=== PATIENT | male | born 1935 | race Caucasian/White ===

== ENCOUNTER → 2018-04-13 | Outpatient (CLI) | payer MEDICARE, OTHER ==
[~2018-04-13] MED LIST: BENADRYL25 M2 PO; EUCERIN1 CRE TP; FERROUS SULFATE65 MG PO; GINGER500 MG PO; PEPCID 20MG TAB20 MG PO; PREDNISONE20 MG PO; TOBRADEX EYE O3.5 GM OP; [UNRECOGNIZED DRUG - OTHER]
== END ==
LOC: COL.RAD 14:44
DX: N28.1 Cyst of kidney, acquired (principal); N26.1 Atrophy of kidney (terminal); N40.0 Benign prostatic hyperplasia without lower urinary tract symptoms; R39.198 Other difficulties with micturition

== ENCOUNTER → 2019-05-23 | Outpatient (CLI) | payer MEDICARE, OTHER | LOC: MHCPAIN 13:00 | DX: G89.29 Other chronic pain (principal); M47.817 Spondylosis without myelopathy or radiculopathy, lumbosacral region; M53.3 Sacrococcygeal disorders, not elsewhere classified; M96.1 Postlaminectomy syndrome, not elsewhere classified | CPT/HCPCS: G0463 ==

== ENCOUNTER → 2019-06-01 | Outpatient (CLI) | payer MEDICARE, OTHER | LOC: MHCPAIN 12:33 | DX: M47.817 Spondylosis without myelopathy or radiculopathy, lumbosacral region (principal); M54.16 Radiculopathy, lumbar region | CPT/HCPCS: J1040; Q9967 ==

== ENCOUNTER → 2019-06-28 | Outpatient (CLI) | payer MEDICARE, OTHER | LOC: MHCPAIN 13:01 | DX: G89.29 Other chronic pain (principal); M47.817 Spondylosis without myelopathy or radiculopathy, lumbosacral region; M54.16 Radiculopathy, lumbar region; M53.3 Sacrococcygeal disorders, not elsewhere classified; M96.1 Postlaminectomy syndrome, not elsewhere classified | CPT/HCPCS: G0463 ==

== ENCOUNTER → 2019-08-22 | Outpatient (CLI) | payer MEDICARE, OTHER | LOC: MHCPAIN 12:53 | DX: M47.817 Spondylosis without myelopathy or radiculopathy, lumbosacral region (principal); M54.16 Radiculopathy, lumbar region | CPT/HCPCS: G0463 ==

== ENCOUNTER 2019-11-13 13:28 | Emergency (ER) | payer MEDICARE, OTHER ==
[~2019-11-13] VITALS: Ht 175.3 cm; Wt 59.1 kg
[2019-11-13 13:44] VITALS: TEMP 99.6
[2019-11-13 14:41] LABS: BASO % 0.9 % (0.0-2.0); EOS % 0.6 % (0-4.0); GRAN # 2.1 (1.4-6.5); GRAN % 65.2 % (42.2-75.2); HEMOGLOBIN 10.5 g/dl (13.5-18.0); LYMPH # 0.5 (1.2-3.4); MEAN CELL VOLUME 92 fl (80.0-100.0); MEAN CORPUSCULAR HEMOGLOBIN 30 pg (27.0-31.0); MEAN CORPUSCULAR HGB CONC 32 g/dl (33.0-37.0); MEAN PLATELET VOLUME 10.4 fl (7.4-10.4); MONO # 0.6 (0.1-0.6); MONO % 18.3 % (1.7-9.3); PLATELET COUNT 221 K/mm3 (130-400); RED BLOOD COUNT 3.56 M/mm3 (4.20-5.60); REDCELL DISTRIBUTION WIDTH-CV 12.7 % (11.5-14.5)
[2019-11-13 14:42] LABS: HEMATOCRIT 32.8 % (42.0-52.0)
[2019-11-13 14:49] LABS: ALANINE AMINOTRANSFERASE 12 U/L (4-49); ALBUMIN 3.5 gm/dL (3.5-5.0); ALKALINE PHOSPHATASE 76 U/L (50-136); ANION GAP 9 mmol/L (7-16); AST,SGOT 28 U/L (15-37); BILIRUBIN,TOTAL 0.3 mg/dL (0.0-1.0); BLOOD UREA NITROGEN 24 mg/dL (9-20); CALCIUM 8.6 mg/dL (8.4-10.2); CARBON DIOXIDE 27 mmol/L (22-30); CHLORIDE 103 mmol/L (98-107); CREATININE, serum 1.47 (0.66-1.25); GLUCOSE 89 mg/dL (74-106); POTASSIUM 4.6 mmol/L (3.4-5.0); SODIUM 140 mmol/L (137-145); TOTAL PROTEIN 6.1 gm/dL (6.4-8.2)
[2019-11-13 15:07] LABS: TROPONIN-I < 0.012 ng/mL (0.000-0.035)
[2019-11-13 16:05] LABS: COLLECTION METHOD CLEAN CATCH
[2019-11-13 16:39] LABS: PH 5 (5-8); SQUAMOUS EPITHELIAL None Seen /hpf; URINE APPEARANCE Clear; URINE BACTERIA None Seen /hpf; URINE BILIRUBIN Negative (NEGATIVE); URINE BLOOD Negative (NEGATIVE); URINE COLOR Yellow; URINE GLUCOSE Negative (NEGATIVE); URINE KETONE Negative (NEGATIVE); URINE LEUKOCYTE ESTERASE Negative (NEGATIVE); URINE NITRATE Negative (NEGATIVE); URINE PROTEIN(semi-quant) Negative (NEGATIVE); URINE RBC 0-2 /hpf; URINE UROBILINOGEN Negative (NEGATIVE)
[2019-11-13 17:06] VITALS: BP 136/65; PULSE 72
== END 2019-11-13 17:06 | disposition home or self-care (01) ==
LOC: COL.ER 13:28
PROVIDERS: Emergency Medicine
DX: R07.89 Other chest pain (principal); R09.81 Nasal congestion

== ENCOUNTER 2019-11-15 13:00 | Outpatient (RCR) | payer MEDICARE, OTHER | END 2020-01-15 | disposition home or self-care (01) | LOC: WSPT | DX: M41.9 Scoliosis, unspecified (principal); G57.00 Lesion of sciatic nerve, unspecified lower limb ==

== ENCOUNTER 2020-03-09 07:54 | Emergency (ER) | payer MEDICARE, OTHER ==
[~2020-03-09] VITALS: Ht 172.7 cm; Wt 56.8 kg
[2020-03-09 08:08] VITALS: TEMP 98.4
[2020-03-09 09:33] VITALS: BP 147/79; PULSE 97
== END 2020-03-09 09:34 | disposition home or self-care (01) ==
LOC: COL.ER 07:54
DX: H57.89 Other specified disorders of eye and adnexa (principal)

== ENCOUNTER → 2021-06-13 | Outpatient (CLI) | payer MEDICARE, OTHER | LOC: COL.RAD 06-11 09:05 | DX: M47.816 Spondylosis without myelopathy or radiculopathy, lumbar region (principal); M41.86 Other forms of scoliosis, lumbar region; M25.551 Pain in right hip ==

== ENCOUNTER 2021-09-04 10:30 | Outpatient (RCR) | payer MEDICARE, OTHER | END 2021-09-05 | disposition home or self-care (01) | LOC: WSPT | DX: M54.50 Low back pain, unspecified (principal); M25.551 Pain in right hip ==

== ENCOUNTER → 2022-02-11 | Outpatient (CLI) | payer MEDICARE, OTHER | LOC: COL.RAD 07:07 | DX: G31.84 Mild cognitive impairment of uncertain or unknown etiology (principal); R25.9 Unspecified abnormal involuntary movements; R90.82 White matter disease, unspecified ==

== ENCOUNTER → 2023-09-07 | Outpatient (REF) | payer MEDICARE, OTHER ==
[~2023-09-07] MED LIST changes: +ARICEPT 5MG PO; +ASPIRIN 81M81 MG/TA2 PO; +FLEXERIL5 MG PO; +MELATIN 3 MG-11 TAB PO; +MIRALAX PA17 GM/Dose PO; +NEURONTIN300 MG/CAP PO; +RT ALBUTER2.5 MG/0.5 IH; +TYLENOL 325MG325 MG PO; +ULTRAM 50MG TAB50 MG PO
[2023-09-07 17:38] LABS: ALANINE AMINOTRANSFERASE < 6 U/L (0-55); ALBUMIN 3.4 gm/dL (3.4-4.8); ALKALINE PHOSPHATASE 89 U/L (40-150); ANION GAP 12 mmol/L (7-16); AST,SGOT 13 U/L (5-34); BASO # 0.1 K/mm3 (0.0-0.2); BASO % 1.3 % (0.0-2.0); BILIRUBIN,TOTAL 0.4 mg/dL (0.2-1.2); BLOOD UREA NITROGEN 34 mg/dL (8-26); CARBON DIOXIDE 22 mmol/L (23-31); CHLORIDE 105 mmol/L (98-107); CREATININE, serum 1.68 mg/dL (0.72-1.25); EOS # 0.1 K/mm3 (0.0-0.7); EOS % 2.2 % (0.0-4.0); GLUCOSE 141 mg/dL (70-99); GRAN # 3.8 K/mm3 (1.4-6.5); GRAN % 69.7 % (42.2-75.2); HEMATOCRIT 32.2 % (42.0-52.0); HEMOGLOBIN 10.4 g/dl (13.5-18.0); LYMPH % 18.1 % (20.0-51.0); MEAN CELL VOLUME 94 fl (80.0-100.0); MEAN CORPUSCULAR HEMOGLOBIN 30 pg (27-31); MEAN CORPUSCULAR HGB CONC 32 g/dl (33.0-37.0); MONO # 0.5 K/mm3 (0.1-0.6); MONO % 8.3 % (1.7-9.3); PLATELET COUNT 335 K/mm3 (130-400); POTASSIUM 4.7 mmol/L (3.5-4.5); RED BLOOD COUNT 3.44 M/mm3 (4.20-5.60); REDCELL DISTRIBUTION WIDTH-CV 13.6 % (11.5-14.5); SODIUM 139 mmol/L (136-145); TOTAL PROTEIN 5.8 gm/dL (6.2-8.1); TSH w REFLEX 4.012 uIU/mL (0.350-4.940)
== END ==
LOC: ZCOL.LAB 16:49
PROVIDERS: Internal Medicine Nephrology
DX: D64.9 Anemia, unspecified (principal); N18.32 Chronic kidney disease, stage 3b; E03.9 Hypothyroidism, unspecified

== ENCOUNTER → 2023-11-08 | Outpatient (REF) | payer MEDICARE, OTHER ==
[~2023-11-08] MED LIST changes: +ASPI325T6 PO; +CALCIUM 600600 MG PO; +DULCOLAX S10 MG/SUPP RC; +DUO-KAPS1 CAP PO; +FERROUS SU325 MG/TAB PO; +HCTZ12.5TAB PO; +IMODIUM 2MG CAPS2 MG PO; +MILK OF MA400 MG/52 PO; +MYLANTA 150 ML150 M1 PO; +NAMENDA5 MG PO; +NORCO 325 MG-51 TAB PO; +REQUIP0.25 MG PO; +SALONPAS1 EACH TP; +SINEMET 25/101 UDTAB PO; +TYLENOL SU650 MG/SUP RC; +VITAMIN C500 MG PO
[2023-11-08 13:47] LABS: BASO # 0.1 K/mm3 (0.0-0.2); BASO % 0.7 % (0.0-2.0); EOS # 0.2 K/mm3 (0.0-0.7); EOS % 1.9 % (0.0-4.0); GRAN % 82.4 % (42.2-75.2); LYMPH # 0.7 K/mm3 (1.2-3.4); LYMPH % 7.9 % (20.0-51.0); MEAN CELL VOLUME 93 fl (80.0-100.0); MEAN CORPUSCULAR HGB CONC 32 g/dl (33.0-37.0); MEAN PLATELET VOLUME 9.9 fl (7.4-10.4); MONO # 0.6 K/mm3 (0.1-0.6); MONO % 6.6 % (1.7-9.3); PLATELET COUNT 747 K/mm3 (130-400); RED BLOOD COUNT 2.78 M/mm3 (4.20-5.60); REDCELL DISTRIBUTION WIDTH-CV 14.4 % (11.5-14.5)
[2023-11-08 13:53] LABS: HEMATOCRIT 25.9 % (42.0-52.0); HEMOGLOBIN 8.2 g/dl (13.5-18.0); MEAN CORPUSCULAR HEMOGLOBIN 29 pg (27-31)
[2023-11-08 14:17] LABS: CALCIUM 8.9 mg/dL (8.4-10.2); CREATININE, serum 1.75 mg/dL (0.72-1.25); POTASSIUM 5.3 mmol/L (3.5-4.5)
== END ==
LOC: ZCOL.LAB 12:49
PROVIDERS: Internal Medicine
DX: E87.5 Hyperkalemia (principal)

== ENCOUNTER → 2024-01-20 | Outpatient (REF) | payer MEDICARE, OTHER ==
[~2024-01-20] MED LIST changes: +AQUAPHOR OINTM396 GM TP; +ARICEPT10 MG PO; +CEPHALEXIN500 M1 PO; +CERAVE 360 ML360 ML TP; +COLACE 100100 MG/CAP PO; +DULCOLAX STOOL100 MG PO; +FENTANYL 12MCG TD; +FLONASE NASAL S16 GM NS; +LEADER CLE17 GM/Dose PO; +MIRTAZAPINE7.5 MG PO; +NORVASC 5MG5 MG/TAB PO; +SINEMET 10/101 UDTAB PO; +VANCOCIN H125 MG/CAP PO; +VANTIN100 MG
[2024-04-10 13:49] LABS: CLOSTRIDIUM DIFF A/B NEG
== END ==
LOC: ZCOL.LAB 08:39
PROVIDERS: Internal Medicine
DX: R19.7 Diarrhea, unspecified (principal); R50.9 Fever, unspecified

== ENCOUNTER 2024-02-24 10:56 | Day surgery (SDC) | payer MEDICARE, OTHER ==
[~2024-02-24] VITALS: Ht 175.3 cm; Wt 57.3 kg
[~2024-02-24 10:56] MED LIST changes: -DULCOLAX STOOL100 MG PO; +LR 1,000 ML IV SCH
[2024-02-24 12:19] VITALS: BP 116/52; PULSE 72; TEMP 97.4
[2024-02-24] MEDS ORDERED: HYDROmorphone 1 MG/1 ML SYRINGE [PACU/SDC ONLY] IV PRN (12:45)
[2024-02-24] MEDS ORDERED: Morphine 2 MG/1 ML VIAL [PACU/SDC ONLY] IV PRN (12:45)
[2024-02-24] MEDS ORDERED: fentaNYL 50 MCG/ML 1 ML SYRINGE/VIAL [PACU/SDC ONLY] IV PRN (12:45)
[2024-02-24] MEDS ORDERED: Ondansetron 4 MG/2 ML VIAL IV PRN (12:45)
[2024-02-24] MEDS ORDERED: hydrALAZINE 20 MG/ML 1 ML VIAL IV PRN (12:45)
[2024-02-24] MEDS ORDERED: MIRALAX PA17 GM/Dose PO (12:57)
[2024-02-24] MEDS ORDERED: DULCOLAX STOOL100 MG PO (12:57)
[2024-02-24] MEDS ORDERED: Lidocaine 2% (20 MG/ML) 20 ML UROJET UR ONE (13:10)
[2024-02-24 14:05] VITALS: BP 149/57; PULSE 78; TEMP 97.1
[2024-02-24 14:15] VITALS: BP 141/60; PULSE 75
--- NOTE | 2024-02-24 15:27 | NUR ---
1405- PATIENT TO BAY 2 FROM PACU BY CART. REPORT GIVEN FROM COSME ELLIS. VSS. CAREGIVER AT BEDSIDE. 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 PATIENT IS TRACKING MOVEMENT WITH EYES BUT NO VERBAL COMMANDS. NO OTHER NEEDS AT THIS TIME. CALL LIGHT WITHIN REACH. 1415- VSS. PATIENT SITTING UP AND EATING. PATIENT KEEPS SAYING "I'M COLD". HAS SEVERAL BLANKETS ON. NO OTHER NEEDS AT THIS TIME. 1445- IV DC'D AT THIS TIME. TIP INTACT. 1500- DISCHARGE INSTRUCTIONS GIVEN TO CAREGIVER. VERBALIZED UNDERSTANDING. QUESTIONS ANSWERED. 1515- PATIENT TAKEN BY PERSONAL WHEELCHAIR. SENT IN [employer] DRIVEN BY [facility].
[2024-02-24 16:22] VITALS: BP 149/57; PULSE 77; TEMP 97.8
== END 2024-02-24 15:15 ==
LOC: SDCO 10:56
DX: N20.1 Calculus of ureter (principal); N39.0 Urinary tract infection, site not specified; Z85.46 Personal history of malignant neoplasm of prostate
CPT/HCPCS: C1769; C2617; J7120

== ENCOUNTER → 2024-05-17 | Outpatient (REF) | payer MEDICARE, OTHER ==
[~2024-05-17] MED LIST changes: +DULCOLAX STOOL100 MG PO; -LR 1,000 ML IV SCH
[2024-05-17 12:18] LABS: HEMOGLOBIN 11.5 g/dl (13.5-18.0); MEAN CELL VOLUME 89 fl (80.0-100.0); MEAN CORPUSCULAR HEMOGLOBIN 30 pg (27-31); MEAN CORPUSCULAR HGB CONC 33 g/dl (33.0-37.0); MEAN PLATELET VOLUME 10.2 fl (7.4-10.4); PLATELET COUNT 552 K/mm3 (130-400); RED BLOOD COUNT 3.87 M/mm3 (4.20-5.60); REDCELL DISTRIBUTION WIDTH-CV 17.8 % (11.5-14.5)
[2024-05-17 12:25] LABS: PH 5.5 (5.0-8.5); URINE APPEARANCE CLEAR (CLEAR/HAZY); URINE BLOOD NEGATIVE (NEGATIVE); URINE COLOR YELLOW (YELLOW); URINE GLUCOSE NEGATIVE (NEGATIVE); URINE KETONE TRACE (NEGATIVE); URINE NITRATE NEGATIVE (NEGATIVE); URINE PROTEIN(semi-quant) 1+ (NEGATIVE); URINE UROBILINOGEN 0.2 E.U/dL (0.2-1.0)
[2024-05-17 12:26] LABS: HEMATOCRIT 34.6 % (42.0-52.0)
[2024-05-17 12:33] LABS: ALBUMIN 2.1 g/dL (3.4-4.8); ALKALINE PHOSPHATASE 103 U/L (40-150); ANION GAP 14 mmol/L (7-16); AST,SGOT 4 U/L (5-34); BAND 24 % (0-10); BILIRUBIN,TOTAL 0.3 mg/dL (0.2-1.2); BLOOD UREA NITROGEN 82 mg/dL (8-26); CALCIUM 8.2 mg/dL (8.4-10.2); CHLORIDE 114 mEq/L (98-107); CREATININE, serum 3.28 mg/dL (0.72-1.25); GLUCOSE 163 mg/dL (70-99); LYMPHOCYTE 1 % (20.0-51.0); NEUTROPHILS 73 % (42.0-75.2); PLATELET ESTIMATE INCREASED (NORMAL); POTASSIUM 4.8 mEq/L (3.5-4.5); SCHISTOCYTES 1+; SODIUM 141 mEq/L (136-145); TOTAL PROTEIN 4.8 g/dl (6.2-8.1)
[2024-05-17 12:47] LABS: ALANINE AMINOTRANSFERASE < 6 U/L (0-55); SQUAMOUS EPITHELIAL 0-2 /hpf (0-10); URINE RBC 0-2 /hpf (0-2)
[2024-05-17 12:48] LABS: URINE BACTERIA OCCASIONAL /hpf (NONE SEEN); URINE CALCIUM OXALATE CRYSTAL PRESENT (NOT PRESENT)
[2024-05-17 12:50] LABS: COLLECTION METHOD CLEAN CATCH
== END ==
LOC: ZCOL.LAB 15:06
PROVIDERS: Family Medicine
DX: N30.00 Acute cystitis without hematuria (principal)